=== PATIENT | female | born 1990 | race Two or more races ===

== ENCOUNTER 2024-07-22 04:45 | Emergency (ER) | payer OTHER ==
[~2024-07-22] VITALS: Ht 154.9 cm; Wt 56.8 kg
[2024-07-22] MEDS: KETOROLAC TROMETHAMINE 60 MG/2 ML VIAL IM ONE (05:23)
[2024-07-22] MEDS: LORazepam 2 MG/ML VIAL IM ONE (05:24)
[2024-07-22 05:44] LABS: BASOPHILS % (AUTO) 0.3 % (0.0-2.0); EOSINOPHILS % (AUTO) 4.6 % (1.0-6.0); HEMATOCRIT 38.9 % (36-46); HEMOGLOBIN 13.2 g/dL (12.0-16.0); LYMPHOCYTES # (AUTO) 2.6 K/uL (1.0-4.8); LYMPHOCYTES % (AUTO) 50.5 % (22.0-44.0); MEAN CORPUSCULAR HEMOGLOBIN 31.6 pg (26.0-34.0); MEAN CORPUSCULAR HGB CONC 33.8 G/dL (31.0-37.0); MEAN CORPUSCULAR VOLUME 94 fL (80-100); MONOCYTES # (AUTO) 0.2 K/uL (0.1-1.0); MONOCYTES % (AUTO) 4.7 % (2.0-9.0); NEUTROPHILS % (AUTO) 39.9 % (40.0-70.0); PLATELET COUNT (AUTO) 196 K/uL (150-450); RED BLOOD CELL COUNT(AUTO) 4.16 MIL/uL (4.00-5.20); RED CELL DISTRIBUTION WIDTH 12.9 % (11.5-14.5); WHITE BLOOD COUNT (AUTO) 5.1 K/uL (4.5-11.0)
[2024-07-22 05:45] LABS: ANION GAP 7 mmol/L (8-16); CALCIUM, TOTAL 8.4 mg/dL (8.8-10.5); CARBON DIOXIDE 25 mmol/L (22-29); CHLORIDE 103 mmol/L (98-107); CREATININE 0.73 mg/dL (0.60-1.30); GLOMERULAR FILTR. RATE CALC > 60 mL/min (>60); GLUCOSE,RANDOM 141 mg/dL (70-110); POTASSIUM 3.1 mmol/L (3.5-5.1); SODIUM SERUM 135 mmol/L (136-145); UREA NITROGEN, BLOOD 10 mg/dL (7-18)
[2024-07-22 05:47] LABS: ALCOHOL, BLOOD (SERUM) < 3 mg/dL (0-10)
[2024-07-22] MEDS ORDERED: METH-812 PO (05:51)
[2024-07-22] MEDS ORDERED: IBUP-1554 PO (05:51)
[2024-07-22 06:09] LABS: CREATINE KINASE, TOTAL ONLY 128 U/L (26-192)
[2024-07-22] MEDS: POTASSIUM CHLORIDE 20 MEQ ER TABLET PO ONE (06:14)
[2024-07-22 06:55] VITALS: BP 148/78; PULSE 68; RESP 22; TEMP 97.3; O2SAT 100
== END 2024-07-22 07:34 | disposition home or self-care (01) ==
LOC: EMS 04:46
DX: M79.602 Pain in left arm (principal); M79.642 Pain in left hand; R20.2 Paresthesia of skin; E87.6 Hypokalemia; F15.10 Other stimulant abuse, uncomplicated; Z59.00 Homelessness unspecified
CPT/HCPCS: 99284; 80048; 82550; 84703; 85025; 36415; 96372; G0480; J1885; J2060